=== PATIENT | female | born 1985 | race American Indian/Alaskan Native ===

== ENCOUNTER 2018-06-30 00:51 | Emergency (ER) | payer OTHER ==
[2018-06-30 01:03] VITALS: BP 128/70; PULSE 76; RESP 16; TEMP 98.1; O2SAT 96
--- NOTE | 2018-06-30 02:31 | ED PDOC ---
HPI: General Adult Time Seen by Provider: 06/30/18 01:02 Chief Complaint (Nursing): ENT Problem Chief Complaint (Provider): ENT Problem History Per: Patient History/Exam Limitations: no limitations Onset/Duration Of Symptoms: Days (x2) Additional Complaint(s): 32 years old female with no pmhx presents for evaluation of ear pain associated with sense of fullness and decrease hearing onset 2 days ago. Patient reports she was diagnosed with sinusitis at urgent care and states she is on day 4 of Augmentin. She denies any fever or chills. PMD: non provided Past Medical History Reviewed: Historical Data, Nursing Documentation, Vital Signs Vital Signs: Last Vital Signs Temp 98.1 F 06/30/18 01:00 Pulse 76 06/30/18 01:00 Resp 16 06/30/18 01:00 BP 128/70 06/30/18 01:00 Pulse Ox 96 06/30/18 01:00 - Medical History PMH: No Chronic Diseases - Surgical History Surgical History: No Surg Hx - Family History Family History: States: Unknown Family Hx - Social History Current smoker - smoking cessation education provided: No Alcohol: None Drugs: Denies - Allergies Allergies/Adverse Reactions: Allergies Allergy/AdvReac Type Severity Reaction Status Date / Time No Known Allergies Allergy Verified 06/30/18 01:03 Review of Systems ROS Statement: Except As Marked, All Systems Reviewed And Found Negative Constitutional: Negative for: Fever, Chills ENT: Positive for: Ear Pain (with decreased hearing) Physical Exam - Reviewed Nursing Documentation Reviewed: Yes Vital Signs Reviewed: Yes - Physical Exam Appears: Positive for: Well, No Acute Distress Head Exam: Positive for: ATRAUMATIC, NORMOCEPHALIC Skin: Positive for: Normal Color, Warm, Dry ENT: Positive for: Other (Significant right ear canal swelling. No tenderness or external erythema.) Neurologic/Psych: Positive for: Alert, Oriented (x3) - ECG O2 Sat by Pulse Oximetry: 96 (RA) Pulse Ox Interpretation: Normal Medical Decision Making Medical Decision Making: Time: 134 A/P 32 years old female presents with otitis externa --Recommended patient to follow up with ENT tomorrow --Give antibiotics ear drops --Well appearing upon discharge ----- Scribe Attestation: Documented by Subha Shetty, acting as a scribe for Craig Currie MD. Provider Scribe Attestation: All medical record entries made by the Scribe were at my direction and personally dictated by me. I have reviewed the chart and agree that the record accurately reflects my personal performance of the history, physical exam, medical decision making, and the department course for this patient. I have also personally directed, reviewed, and agree with the discharge instructions and disposition. Disposition - Clinical Impression Clinical Impression: Otitis externa - Patient ED Disposition Is Patient to be Admitted: No - Disposition Referrals: Brandin Chavez MD [Staff Provider] - Disposition: Routine/Home Disposition Time: 01:35 Condition: GOOD Additional Instructions: PLEASE SEE THE ENT TOMORROW. Use the drops as directed (4 drops three times a day for 7 days). Instructions: Outer Ear Infection Forms: [employer] (Irish)
== END 2018-06-30 02:34 | disposition home or self-care (01) ==
LOC: H.ER 00:51
DX: H60.92 Unspecified otitis externa, left ear (principal)